=== PATIENT | female | born 1955 | race Caucasian/White ===

== ENCOUNTER 2023-04-23 23:16 | Emergency (ER) | payer MEDICARE, MEDICAID ==
[2023-04-23 23:31] LABS: BASOPHILS PERCENT AUTO 0.7 % (0.0-1.0); EOSINOPHILS PERCENT AUTO 1.4 % (1.0-3.0); HEMATOCRIT 36.7 % (37.0-47.0); HEMOGLOBIN 12.2 g/dL (12.0-16.0); LYMPHOCYTES PERCENT AUTO 53.8 % (20.5-50.1); MEAN CORPUSCULAR HGB CONC 33.2 g/dL (33.0-35.0); MEAN CORPUSCULAR VOLUME 90.2 fL (80-100); MONOCYTES PERCENT AUTO 7.4 % (2-8); NEUTROPHILS PERCENT AUTO 36.7 % (42.2-75.2); PLATELET COUNT,PLT 316 10^3/uL (150-450); RED BLOOD CELL COUNT 4.07 10^6/uL (4.2-5.4); WHITE BLOOD CELL COUNT,WBC 7.1 10^3/uL (5.0-10.0)
[2023-04-23] MEDS: Sodium Chloride 0.9% 10 ML Syringe FLUSH PRN (23:40)
[2023-04-23 23:50] LABS: INR 0.9 (0.9-1.2); PROTHROMBIN TIME 9.3 SEC (9.0-12.0)
[2023-04-24 00:12] LABS: A/G RATIO 1.1; ALANINE AMINOTRANSFERASE,ALT 24 U/L (14-59); ALBUMIN 3.6 g/dL (3.4-5.0); ALKALINE PHOSPHATASE 79 U/L (46-116); ANION GAP 17.7 mEq/L (7-13); ASPARTATE AMNIOTRANSFERASE,AST 20 U/L (15-37); BILIRUBIN TOTAL 0.2 mg/dL (0.2-1.0); BLOOD UREA NITROGEN,BUN 20 mg/dL (7-18); BUN/CREATININE RATIO 27.8 (No establ ref range); CALCIUM 8.9 mg/dL (8.5-10.1); CARBON DIOXIDE,CO2 24 mmol/L (21-32); CHLORIDE,CL 100 mmol/L (98-107); CREATININE 0.72 mg/dL (0.55-1.02); GLUCOSE RANDOM 139 mg/dL (70-99); MAGNESIUM 1.8 mg/dL (1.8-2.4); POTASSIUM,K 2.7 mmol/L (3.5-5.1); PROTEIN TOTAL,TP 6.8 g/dL (6.4-8.2); SODIUM,NA 139 mmol/L (136-145); TSH ULTRASENSITIVE 5.71 uIU/mL (0.36-3.74)
[2023-04-24 00:13] LABS: C-REACTIVE PROTEIN < 0.50 ng/dL (<=0.50); ESTIMATED GFR 92 mL/min (>=60); ETHANOL BLOOD MEDICAL < 3 mg/dL (0)
[2023-04-24] MEDS: Ketorolac 30 MG/ML SDV IVPUSH ONE (00:51)
[2023-04-24] MEDS: Ondansetron 4 MG/2 ML SDV IVPUSH ONE (00:52)
[2023-04-24] MEDS: NS with KCl 40mEq 1,000 ML IV SCH (00:53)
[2023-04-24 03:52] LABS: APPEARANCE,URINE CLEAR (CLEAR); BILIRUBIN,URINE NEGATIVE (NEGATIVE); COLOR,URINE YELLOW (YELLOW); GLUCOSE,URINE NEGATIVE (NEGATIVE); KETONES,URINE NEGATIVE (NEGATIVE); LEUKOCYTE ESTERASE,URINE TRACE (NEGATIVE); NITRITE,URINE NEGATIVE (NEGATIVE); OCCULT BLOOD,URINE NEGATIVE (NEGATIVE); PH,URINE 8.5 (5.0-9.0); PROTEIN,URINE NEGATIVE (NEGATIVE); UROBILINOGEN,URINE 0.2 mg/dL (0.2-1.0)
[2023-04-24 04:00] LABS: AMORPHOUS SEDIMENT,URINE MODERATE /HPF (NOT SEEN); AMPHETAMINES,URINE NEGATIVE (NEGATIVE); BACTERIA,URINE MODERATE /HPF (0-FEW/HPF); BARBITURATES,URINE NEGATIVE (NEGATIVE); BENZODIAZEPINE,URINE NEGATIVE (NEGATIVE); EPITHELIAL CELLS,URINE FEW /HPF (NOT SEEN); MDMA (ECSTASY), URINE NEGATIVE (NEGATIVE); METHADONE,URINE NEGATIVE (NEGATIVE); METHAMPHETAMINES,URINE NEGATIVE (NEGATIVE); MUCUS,URINE FEW /LPF (NOT SEEN); OPIATES,URINE NEGATIVE (NEGATIVE); OXYCODONE,URINE NEGATIVE (NEGATIVE); PHENCYCLIDINE,URINE NEGATIVE (NEGATIVE); RBC,URINE 0-5 /HPF (0-5); TCA,URINE NEGATIVE (NEGATIVE); WBC,URINE 0-5 /HPF (0-5/HPF)
[2023-04-24] MEDS: Acetaminophen 325 MG Tab PO ONE (04:11)
[2023-04-24] MEDS: Potassium Chloride 10 MEQ Tab.ER PO ONE (05:02)
== END 2023-04-24 05:10 | disposition home or self-care (01) ==
LOC: DL.ED 23:16
DX: R51.9 Headache, unspecified (principal); E87.6 Hypokalemia; R20.2 Paresthesia of skin; R94.6 Abnormal results of thyroid function studies; Z79.899 Other long term (current) drug therapy
CPT/HCPCS: 36415; 70450; 80053; 80305; 80307; 81001; 82607; 82947; 83735; 84443; 85025; 85610; 86140; 87086; 93005; 93010; 96365; 96366; 96375; 99284; 99285; A9270; J1885; J2405; J3480; J3490

== ENCOUNTER 2023-04-25 16:54 | Emergency (ER) | payer MEDICARE, MEDICAID ==
[2023-04-25 17:41] LABS: ANION GAP 14.4 mEq/L (7-13); CALCIUM 9.3 mg/dL (8.5-10.1); CREATININE 0.66 mg/dL (0.55-1.02); EST CRCL DRUG DOSING (CG) 80.81 mL/min; MAGNESIUM 1.9 mg/dL (1.8-2.4); POTASSIUM,K 3.4 mmol/L (3.5-5.1)
[2023-04-25 17:57] LABS: CREATINE KINASE,CK 86 U/L (16-191); LACTATE DEHYDROGENASE,LDH 170 U/L (81-234)
[2023-04-25] MEDS: Triamcinolone Acetonide 40 MG/ML 1 ML SDV INJECT ONE (18:06)
[2023-04-25] MEDS: Lidocaine 1% 5 ML VIAL INJECT ONE (18:06)
[2023-04-25] MEDS: Take Home: Ondansetron 4 MG Tab.DIS, 5 Tab Pack PO ONE (18:45)
== END 2023-04-25 18:50 | disposition home health service (06) ==
LOC: DL.ED 16:54
DX: E87.6 Hypokalemia (principal); E03.9 Hypothyroidism, unspecified; R51.9 Headache, unspecified
CPT/HCPCS: 36415; 80048; 82550; 83615; 83735; 96372; 99284; J3301; J3490; Q0162